=== PATIENT | male | born 1980 | race Asian ===

== ENCOUNTER 2019-06-22 04:31 | Emergency (ER) | payer OTHER ==
[~2019-06-22] VITALS: Ht 175.3 cm; Wt 95.5 kg
[~2019-06-22 04:31] MED LIST: ARIP5TAB8 PO; LISINOPRIL; METF-444 PO; RISPERDAL; ROSU10TA22 PO
[2019-06-22 05:30] VITALS: BP 148/95
[2019-06-22] MEDS: CEPHALEXIN MONOHYDRATE 500 MG CAPSULE PO ONE (05:34)
== END 2019-06-22 05:41 | disposition home or self-care (01) ==
LOC: EMS 04:32
DX: H00.014 Hordeolum externum left upper eyelid (principal); F20.9 Schizophrenia, unspecified; Z79.899 Other long term (current) drug therapy